=== PATIENT | female | born 1990 | race Caucasian/White ===

== ENCOUNTER 2021-08-09 14:52 | Outpatient (REF) | payer SELFPAY ==
[2021-08-10 13:58] LABS: COVID-19 RT-PCR UVMMC Result Negative (Negative)
== END 2021-08-09 14:53 | disposition home or self-care (01) ==
LOC: NCHCN 14:52
PROVIDERS: PCP Pediatrics; Visit Provider Family Medicine
DX: Z20.822 Contact with and (suspected) exposure to COVID-19 (principal)
CPT/HCPCS: U0003

== ENCOUNTER 2023-02-27 11:31 | Outpatient (REF) | payer SELFPAY ==
[2023-02-27 14:39] LABS: HCT 36.5 % (36.0-46.0); MCH 33.8 pg (27.0-33.0); MCHC 32.9 % (32.0-36.0); MCV 103 fL (80-95); MPV 10.7 fL (8.0-11.0); Platelet Count 238 10^3/uL (130-400); RBC 3.55 10^6/uL (3.93-5.22); RDW 15.2 % (11.7-14.6); RDW-SD 57.5 fL; WBC 22.01 10^3/uL (4.4-10.8)
[2023-02-27 14:44] LABS: INR 1.1 (0.9-1.1); Prothrombin Time 11.6 sec (9.3-11.0)
[2023-02-27 15:07] LABS: ALT 70 U/L (14-59); AST 164 U/L (15-37); Albumin 2.6 g/dL (3.4-5.0); Alkaline Phosphatase 220 U/L (46-116); Anion Gap 7.5 mmol/L (3-11); BUN 6 mg/dL (7-18); Bilirubin, Total 2.8 mg/dL (0.2-1.0); CO2 27.5 mmol/L (21.0-32.0); CREATININE 0.5 mg/dL (0.55-1.02); Calcium 8.8 mg/dL (8.5-10.1); Chloride 104 mmol/L (98-107); Estimated GFR 128.52 (mL/min/1.73m2); Glucose 85 mg/dL (74-106); Potassium 3.3 mmol/L (3.5-5.1); Sodium 139 mmol/L (136-145)
[2023-03-01 10:26] LABS: HIV-1/2 Ag & Ab Screen Negative (Negative)
== END 2023-02-27 11:32 | disposition home or self-care (01) ==
LOC: NCHCN 11:31
PROVIDERS: PCP Nurse Practitioner Family; Visit Provider Nurse Practitioner Family
DX: K75.89 Other specified inflammatory liver diseases (principal); Z11.4 Encounter for screening for human immunodeficiency virus [HIV]
CPT/HCPCS: 80053; 85027; 87389; 85610

== ENCOUNTER 2023-03-23 12:03 | Outpatient (REF) | payer MEDICAID, SELFPAY ==
[2023-03-23 15:34] LABS: HCT 34.9 % (36.0-46.0); HGB 11.5 g/dL (11.2-15.7); MCH 33.6 pg (27.0-33.0); MCV 102 fL (80-95); MPV 10.5 fL (8.0-11.0); Platelet Count 171 10^3/uL (130-400); RBC 3.42 10^6/uL (3.93-5.22); RDW 13.4 % (11.7-14.6); RDW-SD 49.3 fL; WBC 14.55 10^3/uL (4.4-10.8)
[2023-03-23 16:32] LABS: ALT 39 U/L (14-59); AST 63 U/L (15-37); Alkaline Phosphatase 147 U/L (46-116); Anion Gap 4.2 mmol/L (3-11); BUN 5 mg/dL (7-18); Bilirubin, Total 1.4 mg/dL (0.2-1.0); CO2 29.8 mmol/L (21.0-32.0); CREATININE 0.4 mg/dL (0.55-1.02); Calcium 8.2 mg/dL (8.5-10.1); Chloride 106 mmol/L (98-107); Estimated GFR 135.62 (mL/min/1.73m2); Glucose 91 mg/dL (74-106); Magnesium 1.5 mg/dL (1.8-2.4); Potassium 3.2 mmol/L (3.5-5.1); Sodium 140 mmol/L (136-145); Total Protein 5.3 g/dL (6.4-8.2)
== END 2023-03-23 12:04 | disposition home or self-care (01) ==
LOC: NCHCN 12:03
PROVIDERS: PCP Nurse Practitioner Family; Visit Provider Registered Nurse
DX: D69.6 Thrombocytopenia, unspecified (principal); F10.10 Alcohol abuse, uncomplicated; K72.90 Hepatic failure, unspecified without coma
CPT/HCPCS: 80053; 85027; 83735

== ENCOUNTER 2023-04-02 15:47 | Outpatient (REF) | payer MEDICAID, SELFPAY ==
[2023-04-02 11:39] LABS: HCT 36.4 % (36.0-46.0); MCH 31.7 pg (27.0-33.0); MCV 96 fL (80-95); MPV 11.1 fL (8.0-11.0); Platelet Count 250 10^3/uL (130-400); RBC 3.79 10^6/uL (3.93-5.22); RDW 13.1 % (11.7-14.6); RDW-SD 45.8 fL; WBC 15.81 10^3/uL (4.4-10.8)
[2023-04-02 11:58] LABS: ALT 19 U/L (14-59); AST 62 U/L (15-37); Albumin 1.9 g/dL (3.4-5.0); Alkaline Phosphatase 146 U/L (46-116); Anion Gap 5.6 mmol/L (3-11); BUN 2 mg/dL (7-18); CO2 28.4 mmol/L (21.0-32.0); CREATININE 0.4 mg/dL (0.55-1.02); Calcium 7.9 mg/dL (8.5-10.1); Chloride 102 mmol/L (98-107); Estimated GFR 135.62 (mL/min/1.73m2); Glucose 103 mg/dL (74-106); Potassium 3.4 mmol/L (3.5-5.1); Sodium 136 mmol/L (136-145); Total Protein 5.6 g/dL (6.4-8.2)
== END 2023-04-02 15:48 | disposition home or self-care (01) ==
LOC: NCHCN 15:47
PROVIDERS: PCP Nurse Practitioner Family; Visit Provider Nurse Practitioner Family
DX: D69.6 Thrombocytopenia, unspecified (principal); L51.3 Stevens-Johnson syndrome-toxic epidermal necrolysis overlap syndrome; K72.90 Hepatic failure, unspecified without coma
CPT/HCPCS: 80053; 85027

== ENCOUNTER 2023-04-09 17:40 | Outpatient (REF) | payer MEDICAID, SELFPAY ==
[2023-04-09 19:20] LABS: HCT 39.8 % (36.0-46.0); HGB 12.8 g/dL (11.2-15.7); MCH 30.5 pg (27.0-33.0); MCHC 32.2 % (32.0-36.0); MCV 95 fL (80-95); MPV 10.7 fL (8.0-11.0); Platelet Count 330 10^3/uL (130-400); RBC 4.19 10^6/uL (3.93-5.22); RDW 13.5 % (11.7-14.6); WBC 13.46 10^3/uL (4.4-10.8)
[2023-04-09 19:41] LABS: ALT 16 U/L (14-59); AST 52 U/L (15-37); Alkaline Phosphatase 171 U/L (46-116); Anion Gap 6.9 mmol/L (3-11); BUN 2 mg/dL (7-18); Bilirubin, Total 0.6 mg/dL (0.2-1.0); CO2 28.1 mmol/L (21.0-32.0); CREATININE 0.4 mg/dL (0.55-1.02); Calcium 8.1 mg/dL (8.5-10.1); Chloride 105 mmol/L (98-107); Estimated GFR 135.62 (mL/min/1.73m2); Glucose 92 mg/dL (74-106); Potassium 3.2 mmol/L (3.5-5.1); Sodium 140 mmol/L (136-145); Total Protein 5.9 g/dL (6.4-8.2)
== END 2023-04-09 17:41 | disposition home or self-care (01) ==
LOC: NCHCN 17:40
PROVIDERS: PCP Nurse Practitioner Family; Visit Provider Internal Medicine Gastroenterology
DX: K70.10 Alcoholic hepatitis without ascites (principal)
CPT/HCPCS: 80053; 85027

== ENCOUNTER 2023-05-02 17:13 | Outpatient (REF) | payer MEDICAID, SELFPAY ==
[2023-05-02 21:27] LABS: ALT 15 U/L (14-59); AST 33 U/L (15-37); Albumin 3.1 g/dL (3.4-5.0); Alkaline Phosphatase 107 U/L (46-116); Anion Gap 9.9 mmol/L (3-11); BUN 8 mg/dL (7-18); Bilirubin, Total 0.6 mg/dL (0.2-1.0); CO2 27.1 mmol/L (21.0-32.0); CREATININE 0.5 mg/dL (0.55-1.02); Calcium 9.2 mg/dL (8.5-10.1); Chloride 105 mmol/L (98-107); Estimated GFR 128.52 (mL/min/1.73m2); Glucose 83 mg/dL (74-106); Potassium 3.9 mmol/L (3.5-5.1); Sodium 142 mmol/L (136-145); Total Protein 7.1 g/dL (6.4-8.2)
== END 2023-05-02 17:14 | disposition home or self-care (01) ==
LOC: NCHCN 17:13
PROVIDERS: PCP Nurse Practitioner Family; Visit Provider Nurse Practitioner Family
DX: K74.69 Other cirrhosis of liver (principal); R18.8 Other ascites
CPT/HCPCS: 80053

== ENCOUNTER 2023-05-14 21:10 | Outpatient (REF) | payer MEDICAID, SELFPAY ==
[2023-05-14 21:57] LABS: HCT 37.9 % (36.0-46.0); HGB 12.4 g/dL (11.2-15.7); MCHC 32.7 % (32.0-36.0); MCV 89 fL (80-95); MPV 11.8 fL (8.0-11.0); Platelet Count 223 10^3/uL (130-400); RBC 4.27 10^6/uL (3.93-5.22); RDW 13.5 % (11.7-14.6); RDW-SD 44.4 fL; WBC 9.68 10^3/uL (4.4-10.8)
== END 2023-05-14 21:11 | disposition home or self-care (01) ==
LOC: NCHCN 21:10
PROVIDERS: PCP Nurse Practitioner Family; Visit Provider Nurse Practitioner Family
DX: K70.31 Alcoholic cirrhosis of liver with ascites (principal)
CPT/HCPCS: 80053; 85027

== ENCOUNTER 2024-10-06 16:14 | Outpatient (REF) | payer MEDICAID, SELFPAY ==
[2024-10-06 19:11] LABS: Abs Immature Grans 0.04 10^3/uL (0.0-0.06); Absolute Basophil Count 0.07 10^3/uL (0.0-0.2); Absolute Eosinophil Count 0.34 10^3/uL (0.0-0.7); Absolute Lymphocyte Count 1.83 10^3/uL (1.2-3.4); Absolute Monocyte Count 1.02 10^3/uL (0.1-0.8); Absolute Neutrophil Count 5.79 10^3/uL (1.2-6.7); Basophils % 0.8 %; Eosinophils % 3.7 %; HCT 27.8 % (36.0-46.0); HGB 9.1 g/dL (11.2-15.7); Immature Grans % 0.4 %; Lymphocytes % 20.1 %; MCH 31.9 pg (27.0-33.0); MCHC 32.7 % (32.0-36.0); MCV 98 fL (80-95); Monocytes % 11.2 %; Neutrophils % 63.8 %; RBC 2.85 10^6/uL (3.93-5.22); RDW 18.1 % (11.7-14.6); RDW-SD 63.7 fL; WBC 9.09 10^3/uL (4.4-10.8)
[2024-10-06 19:18] LABS: INR 1.4 (0.9-1.1); Prothrombin Time 13.5 sec (9.1-11.1)
== END 2024-10-06 16:15 | disposition home or self-care (01) ==
LOC: LBN 16:14
PROVIDERS: PCP Nurse Practitioner Family; Visit Provider Student in an Organized Health Care Education/Training Program
DX: K72.90 Hepatic failure, unspecified without coma (principal); K76.82 Hepatic encephalopathy; D65 Disseminated intravascular coagulation [defibrination syndrome]
CPT/HCPCS: 85025; 85610; 85730

== ENCOUNTER 2024-11-19 19:15 | Outpatient (REF) | payer MEDICAID, SELFPAY ==
[2024-11-19 21:11] LABS: HCT 27.7 % (36.0-46.0); HGB 9.6 g/dL (11.2-15.7); MCH 29.6 pg (27.0-33.0); MCHC 34.7 % (32.0-36.0); MCV 86 fL (80-95); MPV 12.5 fL (8.0-11.0); Platelet Count 104 10^3/uL (130-400); RBC 3.24 10^6/uL (3.93-5.22); RDW 16.6 % (11.7-14.6); RDW-SD 51.1 fL; WBC 11.85 10^3/uL (4.4-10.8)
[2024-11-19 21:14] LABS: Anion Gap 7.1 mmol/L (3-11); BUN 10 mg/dL (7-18); CO2 26.9 mmol/L (21.0-32.0); CREATININE 1.4 mg/dL (0.55-1.02); Chloride 99 mmol/L (98-107); Estimated GFR 50.95 (mL/min/1.73m2); Glucose 135 mg/dL (74-106); Sodium 133 mmol/L (136-145)
[2024-11-19 21:23] LABS: Potassium 2.7 mmol/L (3.5-5.1)
[2024-11-19 21:36] LABS: INR 1.5 (0.9-1.1); Prothrombin Time 14.7 sec (9.1-11.1)
== END 2024-11-19 19:16 | disposition home or self-care (01) ==
LOC: NCHCN 19:15
PROVIDERS: PCP Nurse Practitioner Family; Visit Provider Nurse Practitioner Family
DX: K70.31 Alcoholic cirrhosis of liver with ascites (principal)
CPT/HCPCS: 80048; 85027; 85610

== ENCOUNTER 2024-11-20 08:58 | Outpatient (REF) | payer MEDICAID, SELFPAY ==
[2024-11-26 21:47] LABS: INR 1.4 (0.9-1.1); Prothrombin Time 13.7 sec (9.1-11.1)
[2024-11-26 21:57] LABS: HCT 28.2 % (36.0-46.0); HGB 9.5 g/dL (11.2-15.7); MCH 29.7 pg (27.0-33.0); MCHC 33.7 % (32.0-36.0); MCV 88 fL (80-95); MPV 12.3 fL (8.0-11.0); Platelet Count 120 10^3/uL (130-400); RDW 17.2 % (11.7-14.6); RDW-SD 55.4 fL; WBC 10.58 10^3/uL (4.4-10.8)
[2024-11-26 21:59] LABS: ALT 36 U/L (14-59); AST 99 U/L (15-37); Albumin 2.4 g/dL (3.4-5.0); Alkaline Phosphatase 191 U/L (46-116); Anion Gap 5.9 mmol/L (3-11); BUN 7 mg/dL (7-18); Bilirubin, Total 2.53 mg/dL (0.2-1.0); CO2 20.1 mmol/L (21.0-32.0); CREATININE 1.2 mg/dL (0.55-1.02); Calcium 9.2 mg/dL (8.5-10.1); Chloride 107 mmol/L (98-107); Glucose 118 mg/dL (74-106); Sodium 133 mmol/L (136-145); Total Protein 6.6 g/dL (6.4-8.2)
== END 2024-11-20 08:59 | disposition home or self-care (01) ==
LOC: NCHCN 08:58
PROVIDERS: PCP Nurse Practitioner Family; Visit Provider Nurse Practitioner Family
DX: K74.60 Unspecified cirrhosis of liver (principal)
CPT/HCPCS: 80053; 85027; 85610

== ENCOUNTER 2024-11-27 14:25 | Outpatient (REF) | payer MEDICAID, SELFPAY ==
[2024-11-27 15:40] LABS: Anion Gap 3.9 mmol/L (3-11); BUN 6 mg/dL (7-18); CO2 20.1 mmol/L (21.0-32.0); CREATININE 1.1 mg/dL (0.55-1.02); Calcium 8.9 mg/dL (8.5-10.1); Chloride 108 mmol/L (98-107); Estimated GFR 68.04 (mL/min/1.73m2); Glucose 117 mg/dL (74-106); Sodium 132 mmol/L (136-145)
[2024-11-27 15:54] LABS: Potassium 6.2 mmol/L (3.5-5.1)
== END 2024-11-27 14:26 | disposition home or self-care (01) ==
LOC: NCHCN 14:25
PROVIDERS: PCP Nurse Practitioner Family; Visit Provider Nurse Practitioner Family
DX: E87.5 Hyperkalemia (principal)
CPT/HCPCS: 80048

== ENCOUNTER 2024-12-01 10:39 | Outpatient (REF) | payer MEDICAID, SELFPAY ==
[2024-12-01 14:34] LABS: HCT 25.3 % (36.0-46.0); HGB 8.5 g/dL (11.2-15.7); MCH 28.7 pg (27.0-33.0); MCHC 33.6 % (32.0-36.0); MCV 86 fL (80-95); Platelet Count 102 10^3/uL (130-400); RBC 2.96 10^6/uL (3.93-5.22); RDW 17.4 % (11.7-14.6); WBC 8.31 10^3/uL (4.4-10.8)
[2024-12-01 14:42] LABS: ALT 34 U/L (14-59); AST 82 U/L (15-37); Albumin 2.2 g/dL (3.4-5.0); Alkaline Phosphatase 165 U/L (46-116); Anion Gap 6.3 mmol/L (3-11); BUN 5 mg/dL (7-18); Bilirubin, Total 2.47 mg/dL (0.2-1.0); CO2 22.7 mmol/L (21.0-32.0); CREATININE 1.2 mg/dL (0.55-1.02); Calcium 8.7 mg/dL (8.5-10.1); Chloride 106 mmol/L (98-107); Glucose 90 mg/dL (74-106); Magnesium 1.5 mg/dL (1.8-2.4); Potassium 4.8 mmol/L (3.5-5.1); Sodium 135 mmol/L (136-145); Total Protein 6.1 g/dL (6.4-8.2)
[2024-12-01 14:43] LABS: INR 1.4 (0.9-1.1); Prothrombin Time 13.8 sec (9.1-11.1)
[2024-12-04 09:25] LABS: PEth 16:0/18:1(POPEth) <10 ng/mL (Cutoff: 10); PEth 16:0/18:2(PLPEth) <10 ng/mL (Cutoff: 10); PEth Interpretation Negative.
== END 2024-12-01 10:40 | disposition home or self-care (01) ==
LOC: NCHCN 10:39
PROVIDERS: PCP Nurse Practitioner Family; Visit Provider Nurse Practitioner Family
DX: K74.60 Unspecified cirrhosis of liver (principal)
CPT/HCPCS: 80053; 80321; 85027; 83735; 85610